=== PATIENT | male | born 1955 | race Caucasian/White ===

== ENCOUNTER 2022-10-09 16:07 | Emergency (ER) | payer OTHER ==
[2022-10-09 16:39] VITALS: RESP 20
--- NOTE | 2022-10-09 17:23 | ED ---
General Adult HPI - General Chief complaint: Extremity Injury, Lower Stated complaint: +DVT from Imaging Time Seen by Provider: 10/09/22 16:59 Source: patient, RN notes reviewed Mode of arrival: ambulatory Limitations: no limitations - History of Present Illness Initial comments: 66-year-old male with no significant past medical history presents the emergency department with a chief complaint abnormal imaging study. Patient reports that he had a DVT study performed outpatient at this facility earlier today. He reports that his positive for DVT. He was instructed to have the nearest emergency department for treatment. Patient denies any injury or trauma. He reports that he has noticed his right leg swelling for 6 months. He denies any fever, chills, rashes, shortness of breath, dyspnea, chest pain, palpitations. Patient denies history of DVT. Patient is not currently on anticoagulation. He has been taking aspirin with mild symptomatically relief. - Related Data Previous Rx's Medication Instructions Recorded Apixaban [Eliquis] 5 mg PO BID #60 tab 10/09/22 Allergies Allergy/AdvReac Type Severity Reaction Status Date / Time No Known Allergies Allergy Verified 10/09/22 16:39 Review of Systems ROS Statement: Those systems with pertinent positive or pertinent negative responses have been documented in the HPI. ROS Other: All systems not noted in ROS Statement are negative. Past Medical History Past Medical History: No Reported History History of Any Multi-Drug Resistant Organisms: None Reported Past Surgical History: No Surgical Hx Reported Past Psychological History: No Psychological Hx Reported Smoking Status: Never smoker Past Alcohol Use History: Occasional Past Drug Use History: None Reported General Exam - General Exam Comments Initial Comments: General: Alert, in no acute distress Head: atraumatic normocephalic. Eyes PERRL, EOMI intact, mucous membranes moist Respiratory: Lungs clear to auscultation bilaterally Cardiovascular: Heart rate regular rate and rhythm Abdominal: Soft without guarding or rebound Extremities: Normal inspection with full range of motion and normal capillary refill, right lower extremities with mild edema. No ecchymosis or erythema. No warmth. Positive Homans sign. 2+ DT/PT pulses show massive vascular intact. Neuroogic: alert and oriented 3, CN II-XII intact, able to ambulate with steady gait Skin: warm dry and intact with normal color Limitations: no limitations Course Vital Signs 08/11/23 08/11/23 16:36 17:56 Temperature 98.5 F 98.0 F Pulse Rate 94 90 Respiratory 20 20 Rate Blood Pressure 135/80 130/77 O2 Sat by Pulse 97 97 Oximetry Medical Decision Making - Medical Decision Making Was pt. sent in by a medical professional or institution ([facility], TECHNOLOGIST INFECTIOUS DISEASE, urgent care, hospital, or intermediate...) When possible be specific @ -[No] Did you speak to anyone other than the patient for history (EMS, parent, family, police, friend...)? What history was obtained from this source @ -[No] Did you review nursing and triage notes (agree or disagree)? Why? @ -[I reviewed and agree with nursing and triage notes] Were old charts reviewed (outside hosp., previous admission, EMS record, old EKG, old radiological studies, urgent care reports/EKG's, intermediate records)? Report findings @ -[No old charts were reviewed] Differential Diagnosis (chest pain, altered mental status, abdominal pain women, abdominal pain men, vaginal bleeding, weakness, fever, dyspnea, syncope, headache, dizziness, GI bleed, back pain, seizure, CVA, palpatations, mental health, musculoskeletal)? @ -[not applicable] EKG interpreted by me (3pts min.). @ -[As above] X-rays interpreted by me (1pt min.). @ -[None done] CT interpreted by me (1pt min.). @ -[None done] U/S interpreted by me (1pt. min.). @ -Ultrasound of right lower extremity is positive for DVT What testing was considered but not performed or refused? (CT, X-rays, U/S, labs)? Why? @ -[None] What meds were considered but not given or refused? Why? @ -[None] Did you discuss the management of the patient with other professionals (professionals i.e. [facility] Patrick, TECHNOLOGIST INFECTIOUS DISEASE, lab, RT, psych nurse, social work coordinator, pipe bending machine operator, teacher, business services officer, case managers)? Give summary @ -[No] Was smoking cessation discussed for >3mins.? @ -[No] Was critical care preformed (if so, how long)? @ -[No] Were there social determinants of health that impacted care today? How? (Homelessness, low income, unemployed, alcoholism, drug addiction, transportation, low edu. Level, literacy, decrease access to med. care, halfway, rehab)? @ -[No] Was there de-escalation of care discussed even if they declined (Discuss DNR or withdrawal of care, Hospice)? DNR status @ -[No] What co-morbidities impacted this encounter? (DM, HTN, Smoking, COPD, CAD, Cancer, CVA, ARF, Chemo, Hep., AIDS, mental health diagnosis, sleep apnea, morbid obesity)? @ -[None] Was patient admitted / discharged? Hospital course, mention meds given and route, prescriptions, significant lab abnormalities, going to OR and other pertinent info. @ -Discharged. This is a pleasant 66-year-old male who presents the emergency department with abnormal imaging results. Ultrasound of right lower extremity was reviewed. Positive for DVT. Results were discussed with patient all questions were addressed. Patient was given Eliquis emergency department and a prescription. Recommend close follow-up with PCP and vascular surgery Dr. Mercado. Patient discharged in stable condition. Return precautions were discussed at length, including worsening shortness of breath, dyspnea, chest pain. Case discussed with CAR Clarke who agrees with plan of care Undiagnosed new problem with uncertain prognosis? @ -[No] Drug Therapy requiring intensive monitoring for toxicity (Heparin, Nitro, Insulin, Cardizem)? @ -[No] Were any procedures done? @ -[No] Diagnosis/symptom? @ -DVT of Right Lower Extremity Acute, or Chronic, or Acute on Chronic? @ -Acute Uncomplicated (without systemic symptoms) or Complicated (systemic symptoms)? @ -uncomplicated Side effects of treatment? @ -[No] Exacerbation, Progression, or Severe Exacerbation? @ -[No] Poses a threat to life or bodily function? How? (Chest pain, [place], [place], pneumonia, PE, COPD, DKA, ARF, appy, cholecystitis, CVA, Diverticulitis, Homicidal, Suicidal, threat to staff... and all critical care pts) @ -Low likelihood Disposition Clinical Impression: DVT of leg (deep venous thrombosis) Disposition: HOME SELF-CARE Condition: Stable Additional Instructions: Please return to the nearest emergency department if symptoms of shortness of breath, fever, chest pain develope Prescriptions: Apixaban [Eliquis] 5 mg PO BID #60 tab Is patient prescribed a controlled substance at d/c from ED?: No Referrals: [facility],Clinic [Primary Care Provider] - 1-2 days Deon Vázquez DO [Doctor of Osteopathic Medicine] - 1-2 days Time of Disposition: 17:21
[2022-10-09 17:58] VITALS: BP 130/77; PULSE 90; TEMP 98
[2022-10-09] MEDS ORDERED: APIXABAN 5 MG TAB PO SCH (21:00)
== END 2022-10-09 17:56 | disposition home or self-care (01) ==
LOC: EC 16:07
DX: I82.401 Acute embolism and thrombosis of unspecified deep veins of right lower extremity (principal)
CPT/HCPCS: 99283

== ENCOUNTER → 2022-10-09 | Outpatient (CLI) | payer OTHER ==
--- NOTE | 2022-10-09 16:07 | US ---
EXAMINATION TYPE: US venous doppler duplex LE RT DATE OF EXAM: 10/09/2022 3:51 PM COMPARISON: NONE CLINICAL INDICATION: Male, 66 years old with history of R60.9 EDEMA; SIDE PERFORMED: Right TECHNIQUE: The lower extremity deep venous system is examined utilizing real time linear array sonog kary with graded compression, doppler sonography and color-flow sonography. VESSELS IMAGED: Common Femoral Vein Deep Femoral Vein Greater Saphenous Vein * Femoral Vein Popliteal Vein Small Saphenous Vein * Proximal Calf Veins (* superficial vessels) Right Leg: Positive for DVT There is non occluding thrombus right pop vein primally extending into the proximal calf veins. IMPRESSION: There is nonocclusive DVT right lower extremity.
== END | disposition home or self-care (01) ==
LOC: RADUSWWP 15:32
DX: R60.9 Edema, unspecified (principal)

== ENCOUNTER → 2023-01-01 | Outpatient (CLI) | payer OTHER ==
--- NOTE | 2023-01-01 11:40 | MR ---
EXAMINATION TYPE: MR Prostate wo/w con DATE OF EXAM: 01/01/2023 9:25 AM COMPARISON: None. CLINICAL INDICATION:Male, 67 years old with history of R97.20 elevated psa, N40.2 NODULAR PROSTATE WI THOU; Elevated PSA. TECHNIQUE: Multi-planar, multi-sequence imaging of the pelvis is performed prior to and following the uncomplicated administration of bolus intravenous gadolinium. CONTRAST: 10.5 Gadavist Interpretive Criteria: PI-RADS v2.1 SERUM PSA: 5.29 on 09/16/2022. SURGICAL PATHOLOGY: No data available. FINDINGS: Prostatic dimensions: 5.2 x 6.6 x 3.7 cm. Ellipsoid Volume:66.49 (PSA density=0.08 ng/mL/mL) CENTRAL GLAND (Central and Transition Zones/CZ+TZ): Multiple bilateral, heterogenous appearing hypertrophic stromal nodules, without suspicious lesion. M edian lobe hypertrophy with protrusion into the base of the bladder. (PI-RADS 2) PERIPHERAL ZONE (PZ): Bilateral linear, indistinct wedgelike areas of low ADC, and low T2 signal, No evidence of masslike a bnormality, or localized perfusional hypervascularity, to further suggest a focus of clinically signi ficant prostate cancer. (PI-RADS 2) SEMINAL VESICLES (SV): Symmetric and unremarkable. PERIPROSTATIC TISSUES: Unremarkable. LYMPH NODES: No enlarged pelvic lymph node. REMAINING PELVIS: Trabeculated bladder wall likely secondary to chronic bladder outlet obstruction. No abnormal free or organized intrapelvic fluid collection. No pathologic bowel dilation or mural thickening. Colonic diverticula are present. No hernia visualized OSSEOUS STRUCTURES: No suspicious osseous abnormality. IMPRESSION: 1. No specific features for high-risk prostate cancer. Maximum PI-RADS score: 2. 2. Moderate BPH, estimated gland volume 66.49 mL.
== END | disposition home or self-care (01) ==
LOC: RADMRIMAIN 12-05 09:21
PROVIDERS: ATTEND Urology
DX: N40.2 Nodular prostate without lower urinary tract symptoms (principal); N40.0 Benign prostatic hyperplasia without lower urinary tract symptoms; R97.20 Elevated prostate specific antigen [PSA]
CPT/HCPCS: 72197; A9585

== ENCOUNTER → 2023-12-31 | Outpatient (CLI) | payer OTHER ==
--- NOTE | 2023-12-31 15:11 | US ---
EXAMINATION TYPE: US venous doppler duplex LE DATE OF EXAM: 12/31/2023 1:30 PM COMPARISON: NONE CLINICAL INDICATION: Male, 68 years old with history of I82.5Z9 CHR EMBOLISM AND THROMBUS; Hx of DVT in right leg. Patient does not take blood thinners. TECHNIQUE: The lower extremity deep venous system is examined utilizing real time linear array sonog kary with graded compression, color doppler sonography, and spectral doppler. SIDE PERFORMED: Bilateral FINDINGS: VESSELS IMAGED: Common Femoral Vein Deep Femoral Vein Greater Saphenous Vein * Femoral Vein Popliteal Vein Small Saphenous Vein * Proximal Calf Veins (* superficial vessels) Right Leg: *Internal echoes seen within proximal popliteal vein. Color defect seen. Appearance of ch ronic thrombus. This vein does not compress completely. Left Leg: No evidence of DVT. IMPRESSION: 1. Right: Exam positive for chronic DVT within the upper popliteal vein. No evidence for acute, occlu sive DVT. 2. Left: No evidence for DVT in the left lower extremity. [facility], , 12/31/2023 3:09 PM
== END | disposition home or self-care (01) ==
LOC: RADUSWWP 13:03
PROVIDERS: ATTEND Internal Medicine Hematology & Oncology
DX: I82.5Z9 Chronic embolism and thrombosis of unspecified deep veins of unspecified distal lower extremity (principal); I82.531 Chronic embolism and thrombosis of right popliteal vein; M12.9 Arthropathy, unspecified; E03.9 Hypothyroidism, unspecified
CPT/HCPCS: 93970

== ENCOUNTER → 2024-07-04 | Outpatient (CLI) | payer OTHER ==
--- NOTE | 2024-07-04 15:55 | US ---
EXAMINATION TYPE: US venous doppler duplex LE RT DATE OF EXAM: 07/04/2024 3:08 PM COMPARISON: Bilateral lower extremity venous ultrasound 12/31/2023, 10/09/2022 CLINICAL INDICATION: Male, 68 years old with history of I82.5Z9 DVT; Hx DVT, 6 month follow up, stopp ed taking blood thinners 4 months ago, on Asprin , Pain TECHNIQUE: The lower extremity deep venous system is examined utilizing real time linear array sonog kary with graded compression, color doppler sonography, and spectral doppler. SIDE PERFORMED: Right FINDINGS: VESSELS IMAGED: Common Femoral Vein Deep Femoral Vein Greater Saphenous Vein * Femoral Vein Popliteal Vein Small Saphenous Vein * Proximal Calf Veins (* superficial vessels) Right Leg: Positive for Chronic non-occlusive DVT, Color Doppler imaging shows patency of the vessel s. Spectral waveforms are within normal limits. The area of chronic DVT on prior US appears to have progressed and involves the proximal, mid, and di stal popliteal vein. The popliteal vein duplicates just above the SSV, which also has chronic clot. T here is also chronic clot noted in one proximal peroneal vein. All areas are at least partially compressible. No evidence of acute DVT. Results communicated to at time of scan IMPRESSION: No evidence for acute deep venous thrombosis. There is progression of chronic nonocclusive deep venou s thrombosis of the right lower extremity as described above. [facility], , 07/04/2024 3:52 PM
== END | disposition home or self-care (01) ==
LOC: RADUSWWP 14:22
PROVIDERS: ATTEND Internal Medicine Hematology & Oncology
DX: I82.501 Chronic embolism and thrombosis of unspecified deep veins of right lower extremity (principal); M12.9 Arthropathy, unspecified; D68.59 Other primary thrombophilia